=== PATIENT | male | born 1940 | race Caucasian/White ===

== ENCOUNTER 2016-06-05 10:57 | Day surgery (SDC) | payer MEDICARE ==
--- NOTE | ~2016-06-05 | EGD ---
EGD REPORT [facility] [address] [address] NAME: TREE GURROLA : [birth year] STATUS : REG [facility]#: [id number] AGE: 76 ADM/REG DATE : 06/05/16 MR#: [id number] REPORT SERV DATE: 06/05/16 DICTATED BY: GREG FINE III DATE: 06/05/16 REPORT STATUS : Draft TRANSCRIBED BY: [facility] DATE: 06/05/16 End[facility] Center Patient Name: Tree Gurrola Date of : 1940 Attending MD: GREG FINE III, MD Procedure Date No Time: 06/05/2016 Procedure: Upper GI endoscopy Indications: Gastroparesis, ileitis noted on colonoscopy Referring MD: JAKOB MON Medicines: Propofol per Anesthesia Complications: No immediate complications. Procedure: Pre-Anesthesia Assessment: - ASA Grade Assessment: II - A patient with mild systemic disease. After obtaining informed consent, the endoscope was passed under direct vision. Throughout the procedure, the patient's blood pressure, pulse, and oxygen saturations were monitored continuously. The GIF [id number] was introduced through the mouth, and advanced to the third part of duodenum. The upper GI endoscopy was accomplished with ease. The patient tolerated the procedure well. Findings: The lower third of the esophagus was mildly tortuous. Localized mild erythema was found at the gastroesophageal junction. Biopsies were taken with a cold forceps for histology. Evidence of a Lupis fundoplication was found in the cardia. The anastomosis was characterized by healthy appearing mucosa. Multiple small sessile polyps with no stigmata of recent bleeding were found in the gastric fundus. The examined duodenum was normal. Using the endoscope, the video capsule enteroscope was advanced into the 2nd part of the duodenum. Impression: - Tortuous esophagus. - Erythema at the gastroesophageal junction. Biopsied. - A Lupis fundoplication was found, anastomosis characterized by healthy appearing mucosa. - Multiple gastric polyps. - Normal examined duodenum. - Successful completion of the Video Capsule Enteroscope placement. Recommendation: - Patient has a contact number available for EGD REPORT [address] [id number] NAME: TREE GURROLA : [birth year] STATUS : REG [facility]#: [id number] AGE: 76 ADM/REG DATE : 06/05/16 MR#: [id number] REPORT SERV DATE: 06/05/16 DICTATED BY: GREG FINE III DATE: 06/05/16 REPORT STATUS : Draft TRANSCRIBED BY: [facility] DATE: 06/05/16 emergencies. The signs and symptoms of potential delayed complications were discussed with the patient. Return to normal activities tomorrow. Written discharge instructions were provided to the patient. - Discharge patient to home. - Follow an antireflux regimen. - Continue present medications. - Await pathology results. Procedure Code(s): --- Professional --- 63010, Esophagogastroduodenoscopy, flexible, transoral; with biopsy, single or multiple Diagnosis Code(s): --- Professional --- Q39.9, Congenital malformation of esophagus, unspecified K22.9, Disease of esophagus, unspecified Z98.89, Other specified postprocedural states K31.7, Polyp of stomach and duodenum K31.84, Gastroparesis CPT copyright 2013 [employer]. All rights reserved. The codes documented in this report are preliminary and upon underwriting service representative review may be revised to meet current compliance requirements. GREG FINE III, MD 06/05/2016 12:42 PM This report has been signed electronically. Number of Addenda: 0 Note Initiated On: 06/05/2016 12:15 PM Scope Withdrawal Time 0 hours 0 minutes 0 seconds [id number] [id number]
[~2016-06-05 10:57] MED LIST: ACET500CAP PO; PCET PO; PEPTO BISMOL LIQ1 ML PO
== END 2016-06-05 23:59 | disposition home or self-care (01) ==
LOC: DMU 10:57
PROVIDERS: Internal Medicine Gastroenterology
PROC: 0DB48ZX Excision of Esophagogastric Junction, Via Natural or Artificial Opening Endoscopic, Diagnostic (ICD-10-PCS; principal; 2016-06-05 12:00)
PROC: 0DJ07ZZ Inspection of Upper Intestinal Tract, Via Natural or Artificial Opening (ICD-10-PCS; 2016-06-05 12:00)
DX: I51.89 Other ill-defined heart diseases (principal); K31.7 Polyp of stomach and duodenum; K31.84 Gastroparesis; K21.9 Gastro-esophageal reflux disease without esophagitis; M25.80 Other specified joint disorders, unspecified joint; Z98.890 Other specified postprocedural states; Z87.19 Personal history of other diseases of the digestive system; Z79.899 Other long term (current) drug therapy; Z87.891 Personal history of nicotine dependence; Z98.41 Cataract extraction status, right eye; Z98.42 Cataract extraction status, left eye; Z96.1 Presence of intraocular lens; Z87.01 Personal history of pneumonia (recurrent); Z90.49 Acquired absence of other specified parts of digestive tract
CPT/HCPCS: 88305; 88342